=== PATIENT | male | born 1985 | race Caucasian/White ===

== ENCOUNTER 2017-02-08 10:21 | Emergency (ER) | payer SELFPAY ==
[2017-02-08 10:31] VITALS: BP 142/92; PULSE 89; TEMP 98.9; BMI 29.2
[2017-02-08] MEDS ORDERED: KETOROLAC TROMETHAMINE 30 MG/1 ML VIAL IVPUSH ONE (11:13)
[2017-02-08] MEDS ORDERED: SODIUM CHLORIDE 1,000 ML IV STA ×2 (11:13→14:29)
[2017-02-08] MEDS ORDERED: ONDANSETRON 4 MG/2 ML VIAL IVPUSH ONE (11:13)
--- NOTE | 2017-02-08 11:19 | PDOC ---
History of Present Illness - General Chief Complaint: Pain Stated Complaint: ABD PAIN Time Seen by Provider: 02/08/17 10:40 History Source: Patient Exam Limitations: No Limitations - History of Present Illness Travel History: No Initial Comments: 02/08/17 11:17 31-year-old male with no past medical history presents to the ED with complaints of sudden onset of left flank pain with one episode of nausea followed by vomiting. Patient states has had no change in urine pattern, fever, chills, diarrhea, abdominal distention, recent travel, recent illness, history of renal colic, hematuria, urinary frequency, constipation, recent sick contacts , or history of GI disorders. Timing/Duration: reports: intermittent Quality: reports: moderate, sharpness Abdominal Pain Onset Location: reports: flank (lt) Pain Radiation: reports: LLQ Activities at Onset: reports: none Aggravating Factors: improves with: None Alleviating Factors: improves with: None Past History - Travel Traveled outside of the country in the last 30 days: No Close contact w/someone who was outside of country & ill: No - Past Medical History Allergies/Adverse Reactions: Allergies Allergy/AdvReac Type Severity Reaction Status Date / Time No Known Allergies Allergy Verified 02/08/17 10:28 Home Medications: Ambulatory Orders No Home Medications 0 dose .ROUTE UTDICT 08/01/12 - Psycho/Social/Smoking Cessation Hx Anxiety: No Suicidal Ideation: No Smoking Status: Yes Smoking History: Current every day smoker Have you smoked in the past 12 months: Yes Number of Cigarettes Smoked Daily: 10 Information on smoking cessation initiated: No 'Breaking Loose' booklet given: 10/05/15 Hx Alcohol Use: No Drug/Substance Use Hx: No Substance Use Type: Alcohol Patient Lives Alone: No Lives with/in: spouse/SO Review of Systems - Review of Systems Able to Perform ROS?: Yes Constitutional: No: Symptoms Reported ABD/GI: Yes: Nausea, Vomiting : Yes: Flank Pain Musculoskeletal: No: Symptoms Reported Integumentary: No: Symptoms Reported Neurological: No: Symptoms reported *Physical Exam - Vital Signs Last Vital Signs Temp Pulse Resp BP Pulse Ox 98.9 F 89 18 142/92 99 02/08/17 10:28 02/08/17 10:28 02/08/17 10:28 02/08/17 10:28 02/08/17 10:28 - Physical Exam General Appearance: Yes: Nourished, Appropriately Dressed. No: Apparent Distress HEENT: positive: Pharynx Normal Respiratory/Chest: positive: Lungs Clear, Normal Breath Sounds. negative: Respiratory Distress, Accessory Muscle Use Cardiovascular: positive: Regular Rhythm, Regular Rate. negative: Murmur Gastrointestinal/Abdominal: positive: Soft, Guarding (mild), Rebound (left flank ), Tenderness (left flank left lower quadrant) Musculoskeletal: positive: CVA Tenderness (L) (mild) Extremity: positive: Normal Capillary Refill. negative: Pedal Edema Integumentary: positive: Normal Color, Warm, Moist Neurologic: positive: Motor Strength 5/5 (ambulatory) ED Treatment Course - LABORATORY CBC & Chemistry Diagram: 02/08/17 11:32 02/08/17 12:18 - RADIOLOGY Radiology Studies Ordered: Category Date Time Status SPIRAL- RENAL-STONE CT [CT] Stat CT Scan 02/08/17 11:13 Ordered Medical Decision Making - Medical Decision Making 02/08/17 11:20 Patient is an onset of left flank pain associated 1 episode of nausea followed by vomiting. Patient exam had left flank left lower quadrant and left CVA tenderness. Patient concerning for renal colic, hydronephrosis, and UTI. Patient ordered for labs, urine, antiemetics, analgesics, IV fluids and a spiral CT. 02/08/17 12:28 Laboratory Tests 02/08/17 11:32 WBC 15.9 H D Hgb 14.9 Hct 43.4 Neutrophils % 88.0 H D 02/08/17 12:28 Laboratory Tests 02/08/17 11:32 Urine Ketones Trace H Urine Blood 1+ H Ur Leukocyte Esterase Negative Urine WBC 1 02/08/17 14:29 CT of the abdomen shows acute diverticulitis in the mid and distal sigmoid colon with stranding of the surrounding fat and small amount of free fluid in the left pericolic gutter without evidence of abscess formation. No definite extraluminal air is identified. Close follow-up is needed. Patient will be given a dose of Flagyl and Cipro here in the ER. Patient ordered for second bag of IV fluid 02/08/17 15:09 Patient also given by mouth challenge and hospitalist made aware of possible admission if patient fails by mouth challenge. 02/08/17 17:12 Patient tolerated crackers and requesting more apple juice along with crackers. Patient will be discharged home with Cipro and Radha along with referral to fiber product cutting machine operator Dr. James. *DC/Admit/Observation/Transfer Diagnosis at time of Disposition: Acute diverticulitis of intestine - Discharge Dispostion Disposition: HOME Condition at time of disposition: Good - Referrals Referrals: Ezra James MD [Staff Physician] - - Patient Instructions Printed Discharge Instructions: DI for Diverticulitis Additional Instructions: Please take antibiotics as prescribed for diverticulitis. Please observe for worsening symptoms such as fever, worsening abdominal pain, or inability to tolerate by mouth. If this occurs you need to return to the ED for further evaluation and possible admission. Otherwise complete antibiotics and follow up with referred fiber product cutting machine operator.
[2017-02-08] MEDS ORDERED: ONDANSETRON 4 MG/2 ML VIAL ONE (11:37)
[2017-02-08] MEDS ORDERED: KETOROLAC TROMETHAMINE 30 MG/1 ML VIAL ONE (11:37)
[2017-02-08 11:42] LABS: URINE APPEARANCE CLEAR; URINE BILIRUBIN NEGATIVE (NEGATIVE); URINE BLOOD 1+ (NEGATIVE); URINE COLOR YELLOW; URINE GLUCOSE (UA) NEGATIVE (NEGATIVE); URINE KETONE TRACE (NEGATIVE); URINE LEUK ESTERASE NEGATIVE (NEGATIVE); URINE NITRITE NEGATIVE (NEGATIVE); URINE PROTEIN NEGATIVE (NEGATIVE); URINE UROBILINOGEN NEGATIVE mg/dL (0.2-1.0)
[2017-02-08 11:53] LABS: URINE MUCUS RARE; URINE RBC <1 /hpf (0-3); URINE WBC 1 /hpf (3-5)
[2017-02-08 11:57] LABS: BASOPHIL 0.1 % (0-2.0); EOSINOPHIL 0.2 % (0-4.5); MCHC 34.2 g/dl (32.0-35.9); MEAN CELL VOLUME 84.6 fl (80-96); MEAN PLT VOLUME 10.8 fl (7.5-11.1); PLATELET COUNT 208 K/MM3 (134-434); RDW 12.6 % (11.9-15.9); WHITE BLOOD COUNT 15.9 K/mm3 (4.0-10.0)
[2017-02-08 13:03] LABS: ALBUMIN 3.9 g/dl (3.4-5.0); ANION GAP 8 (8-16); CALCIUM 8.4 mg/dL (8.5-10.1); CO2 28 mmol/L (21-32); GLUCOSE,RANDOM 88 mg/dL (74-106); SGOT/AST 10 U/L (15-37); SGPT/ALT 21 U/L (12-78)
[2017-02-08 13:06] LABS: ALK PHOS 60 U/L (45-117); BILIRUBIN,TOTAL 0.8 mg/dL (0.2-1.0); CREATININE 0.9 mg/dL (0.7-1.3); TOT PROT 6.6 g/dl (6.4-8.2)
[2017-02-08] MEDS ORDERED: CIPROFLOXACIN 400 MG/D5W 200 ML IVPB ONE (14:27)
[2017-02-08] MEDS ORDERED: METRONIDAZOLE 500 MG PREMIXED 100 ML IVPB ONE ×2 (14:27→15:07)
== END 2017-02-08 17:44 | disposition home or self-care (01) ==
LOC: JER 10:21
PROC: 3E03329 Introduction of Other Anti-infective into Peripheral Vein, Percutaneous Approach (ICD-10-PCS; principal; 2017-02-08)
PROC: 3E033GC Introduction of Other Therapeutic Substance into Peripheral Vein, Percutaneous Approach (ICD-10-PCS; 2017-02-08)
PROC: 3E0337Z Introduction of Electrolytic and Water Balance Substance into Peripheral Vein, Percutaneous Approach (ICD-10-PCS; 2017-02-08)
DX: K57.92 Diverticulitis of intestine, part unspecified, without perforation or abscess without bleeding (principal); F17.210 Nicotine dependence, cigarettes, uncomplicated
CPT/HCPCS: 36415; 74176; 80053; 81003; 81015; 85025; 87086; 99283-25

== ENCOUNTER 2017-02-09 10:03 | Inpatient (IN) | payer SELFPAY ==
--- NOTE | 2017-02-09 10:20 | PDOC ---
History of Present Illness - General Chief Complaint: Pain, Acute Stated Complaint: PAIN Time Seen by Provider: 02/09/17 10:19 - History of Present Illness Initial Comments: 31 year old male with recent ED visit significant for new cholecystitis presenting with abdominal pain, nausea, and vomiting since his discharge yesterday. He states that the pain was controlled in the ED but once he got home he did not have any pain control medication. He also began to feel nauseous and vomited his food and medication last night along with some diarrhea. His main complaint is nausea and pain control. Denies chest pain, headache, cough, or SOB. 02/09/17 10:41 Past History - Past Medical History Allergies/Adverse Reactions: Allergies Allergy/AdvReac Type Severity Reaction Status Date / Time No Known Allergies Allergy Verified 02/09/17 10:04 Home Medications: Ambulatory Orders Ciprofloxacin HCl [Cipro] 500 mg PO BID #20 tablet 02/08/17 Metronidazole [Flagyl -] 500 mg PO TID #30 tablet 02/08/17 Other medical history: denies - Immunization History Immunization Up to Date: Yes - Psycho/Social/Smoking Cessation Hx Anxiety: No Suicidal Ideation: No Smoking Status: Yes Smoking History: Current every day smoker Have you smoked in the past 12 months: Yes Number of Cigarettes Smoked Daily: 10 Information on smoking cessation initiated: No 'Breaking Loose' booklet given: 10/05/15 Hx Alcohol Use: Yes Drug/Substance Use Hx: No Substance Use Type: Alcohol Review of Systems - Review of Systems Constitutional: No: Chills, Diaphoresis, Fever HEENTM: No: Eye Pain, Blurred Vision Respiratory: No: Cough, Shortness of Breath Cardiac (ROS): No: Chest Pain, Lightheadedness ABD/GI: Yes: Diarrhea, Nausea, Vomiting. No: Constipated Musculoskeletal: No: Back Pain Integumentary: No: Bruising, Dryness, Erythema Neurological: No: Headache *Physical Exam - Vital Signs Last Vital Signs Temp Pulse Resp BP Pulse Ox 99.1 F 100 H 18 125/79 99 02/09/17 10:05 02/09/17 10:05 02/09/17 10:05 02/09/17 10:05 02/09/17 10:05 - Physical Exam General Appearance: Yes: Nourished, Appropriately Dressed, Apparent Distress, Mild Distress HEENT: positive: EOMI, GOPAL, Normal ENT Inspection, Normal Voice Neck: positive: Trachea midline. negative: Tender Respiratory/Chest: positive: Lungs Clear, Normal Breath Sounds. negative: Chest Tender, Respiratory Distress, Accessory Muscle Use Cardiovascular: positive: Regular Rhythm, Regular Rate, S1, S2 Gastrointestinal/Abdominal: positive: Normal Bowel Sounds, Tender (Voluntary guarding with TTP in LLQ), Soft, Protuberent. negative: Flat Neurologic: positive: Fully Oriented, Alert, Normal Mood/Affect, Motor Strength 11/04 ED Treatment Course - LABORATORY CBC & Chemistry Diagram: 02/09/17 10:29 02/09/17 10:29 Medical Decision Making - Medical Decision Making 31 year old male with recently diagnosed diverticulitis presenting with vomiting and continued abdominal pain. This is most concerning for perforation given his abdominal exam. CXR negative. Labs significant for WBC 17 (up from 16 yesterday), T-bili slightly elevated to 1.3. 02/09/17 14:[address] Administered 4 more morphine IV for abdominal pain with improved abdominal pain. 02/09/17 16:34 CT returned with free extraluminal air. We paged Dr. Zepeda who was no longer contractor field hauling and we were referred to Dr. Pierre who was the covering surgeon, who we paged twice but were informed that he was in surgery. We then reached out to Dr. Reeves (proposed admitting attending) and she referred us to Dr. Hardy was paged at 16:43. Dr. Hardy was very kind but was unable to help us at the moment given he wasn't contractor field hauling and not in the area. 02/09/17 17:58 We reached back out to Dr. Pierre who performed the consult and discussed the options with the patient in length over the phone. The final decision was to pursue IV antibiotics for the short term in the hopes of recovery without surgery. Dr. Pierre reviewed the film and felt that the reading may be incorrect and that the infection was possibly walled off. Dr. Reeves was paged at 17:50. 02/09/17 18:[address] Reeves, we will admit the patient under her. *DC/Admit/Observation/Transfer Diagnosis at time of Disposition: Diverticula of colon, Perforation bowel - Discharge Dispostion Condition at time of disposition: Stable Admit: Yes - Attestations Physician Attestion: 02/09/17 19:01 I, Dr. Kimber Sharma, attest that this document has been prepared under my direction and personally reviewed by me in its entirety. I further attest, that it accurately reflects all work, treatment, procedures and medical decision -making performed by me.
[2017-02-09] MEDS ORDERED: morphine CARPU-JECT 4 MG/1 ML DISP.SYRIN IVPUSH ONE ×3 (10:31→17:04)
[2017-02-09] MEDS ORDERED: morphine CARPU-JECT 4 MG/1 ML DISP.SYRIN ONE ×2 (10:36→14:09)
[2017-02-09 10:39] LABS: BASOPHIL 0.2 % (0-2.0); MCH 28.9 pg (25.7-33.7); MCHC 34.2 g/dl (32.0-35.9); MEAN CELL VOLUME 84.3 fl (80-96); MEAN PLT VOLUME 10.2 fl (7.5-11.1); NEUTROPHILS 88.7 % (42.8-82.8); PLATELET COUNT 201 K/MM3 (134-434); RDW 12.3 % (11.9-15.9); WHITE BLOOD COUNT 17.1 K/mm3 (4.0-10.0)
[2017-02-09] MEDS ORDERED: LEVOFLOXACIN 750 MG IVPB 150 ML IVPB ONE ×2 (10:40→11:06)
[2017-02-09] MEDS ORDERED: METRONIDAZOLE 500 MG PREMIXED 100 ML IVPB ONE ×2 (10:41→11:06)
[2017-02-09 10:51] LABS: INR 1.62 (0.82-1.09)
[2017-02-09 11:05] LABS: ALBUMIN 3.9 g/dl (3.4-5.0); ANION GAP 9 (8-16); BILIRUBIN,TOTAL 1.2 mg/dL (0.2-1.0); CALCIUM 8.7 mg/dL (8.5-10.1); CO2 27 mmol/L (21-32); CREATININE 1.1 mg/dL (0.7-1.3); GLUCOSE,RANDOM 94 mg/dL (74-106); SGOT/AST 13 U/L (15-37); SGPT/ALT 18 U/L (12-78); TOT PROT 7.1 g/dl (6.4-8.2)
[2017-02-09 11:06] LABS: ALK PHOS 63 U/L (45-117)
[2017-02-09] MEDS ORDERED: SODIUM CHLORIDE 0.9% 1000 ML INFUS.BAG IV ONE (11:25)
--- NOTE | 2017-02-09 11:26 | PDOC ---
Attending Attestation - Resident Resident Name: Kimber Sharma - ED Attending Attestation I have performed the following: I have examined & evaluated the patient, The case was reviewed & discussed with the resident, I agree w/resident's findings & plan, Exceptions are as noted - HPI HPI: 02/09/17 11:17 31-year-old male with no significant past medical history, diagnosed here with diverticulitis on CT scan yesterday and discharged with Cipro and Flagyl presents with worsening left lower quadrant pain, abdominal bloating, and inability to keep antibiotics down. He attempted to take his ciprofloxacin last night and vomited the pill up at midnight. He has yet to take the Flagyl as he feels too nauseous to. Denies any fevers, chills. Denies any chest pain, shortness of breath. - Physicial Exam PE: 02/09/17 11:20 GENERAL: Awake, alert, and fully oriented, in no acute distress HEAD: No signs of trauma EYES: PERRLA, EOMI, sclera anicteric, conjunctiva clear ENT: Auricles normal inspection, hearing grossly normal, nares patent, oropharynx clear without exudates. Moist mucosa NECK: Normal ROM, supple, no lymphadenopathy, JVD, or masses LUNGS: Breath sounds equal, clear to auscultation bilaterally. No wheezes, and no crackles HEART: Regular rate and rhythm, normal S1 and S2, no murmurs, rubs or gallops ABDOMEN: +distention, +guarding, no rebound, +LLQ ttp EXTREMITIES: Normal range of motion, no edema. No clubbing or cyanosis. No cords, erythema, or tenderness NEUROLOGICAL: Normal speech, cranial nerves intact, negative pronator drift, 5/ 5 strength in all 4 extremities, normal sensation to light touch in all 4 extremities, normal cerebellar exam, normal gait, normal reflexes and tone SKIN: Warm, Dry, normal turgor, no rashes or lesions noted. - Medical Decision Making 02/09/17 11:21 31-year-old male diagnosed yesterday with acute diverticulitis presents with inability to tolerate antibiotics and worsening pain. Exam with bloating of the abdomen, guarding, and left lower quadrant tenderness to palpation concerning for possible microperforation vs perf of the bowel. -labs -IV levaquin/flagyl -IV pain meds -IVF -upright CXR to eval for pneumoperitoneum -consider reimaging w CTAP -surgery c/s -admit 02/09/17 17:[address] with pneumoperitoneum secondary to perfect diverticulum patient's we have attempted to page Dr. Fernández from surgery twice for consultation however we have not heard back. We also sent out a page to Dr. valle who called back and he wasn't in the area and thus would not be able to come and consult on this patient. We just placed a another page to Dr. Fernández. Awaiting call back. Patient is currently hemodynamically stable, continues to complain of abdominal pain however improved with IV morphine.
[2017-02-09] MEDS ORDERED: PIPERACILLIN/TAZOB 3.375 GM 3.375 GM in DEXTROSE 5%-WATER - 50 ML IVPB SCH (17:15)
[2017-02-09] MEDS ORDERED: PIPERACILLIN/TAZOB 3.375 GM 50 ML IVPB ONE (17:45)
[2017-02-09] MEDS: PIPERACILLIN/TAZOB 3.375 GM/50 ML PRE-DOCKED IVPB SCH (17:49)
[2017-02-09] MEDS ORDERED: ONDANSETRON 4 MG/2 ML VIAL IVPUSH PRN (20:05)
[2017-02-09] MEDS ORDERED: DEXTROSE 5%-0.45% SALINE 1,000 ML IV SCH ×2 (20:15→21:30)
[2017-02-09] MEDS ORDERED: ACETAMINOPHEN 325 MG TABLET (FP) PO PRN (20:43)
--- NOTE | 2017-02-09 20:50 | PN ---
Progress Note (short form) - Note Progress Note: surgery pt seen and examined now. Full consult dictated. Ct and chart reviewed at 4pm. 31m diagnosed with diverticulitis and returned to ER after failing 1 day of outpt managment. Abd pain with nausea and vomiting since Monday. Ct shows complicated decending colon diverticulitis with contained drops of extraluminal air. wbc 19. fever 100.5 on exam abd is moderately distended with localized llq tenderness with rebound and guarding Plan- complicated diverticulitis>>>perforated malignancy. Pt offered surgical exploration with colectomy and colostomy. Pt declines. He wants every attempt at conservative management and assumes risk of worsening sepsis leading to and unlikely delay in diagnosis of malignancy. Cont npo. Cont zosyn. If patient deteriorates will likely agree to surgery. Would not start any diet until all tenderness resolves. Eventual colonoscopy and elective colectomy if medical managment successful. Will re-eval tomorrow.
[2017-02-09 21:00] VITALS: BMI 27.3
[2017-02-09] MEDS: DEXTROSE 5%-0.45% SALINE 1,000 ML IV SCH (21:26)
[2017-02-09] MEDS: HEPARIN NA (PORCINE) 5,000 UNITS/ML 1ML VIAL SQ SCH (21:30)
[2017-02-10] MEDS: PIPERACILLIN/TAZOB 3.375 GM/50 ML PRE-DOCKED IVPB SCH ×2 (00:15→05:48)
[2017-02-10] MEDS: IBUPROFEN 800 MG/8 ML IJ IVPB PRN ×2 (02:23→14:38)
[2017-02-10] MEDS: morphine CARPU-JECT 4 MG/1 ML DISP.SYRIN IVPUSH PRN ×2 (02:26→23:13)
--- NOTE | 2017-02-10 07:21 | CONS ---
DATE OF CONSULTATION: 02/09/2017 REASON FOR CONSULTATION: Complicated diverticulitis. This is an emergency room consultation at the request of the emergency room physician. The patient was subsequently admitted to the inpatient floor and is being seen now on the floor. BRIEF HISTORY: This is a 31-year-old male who has been having severe lower abdominal pain with nausea and vomiting for the past 48 hours. Yesterday, he went to the [facility] emergency room where a CAT scan was diagnosed with diverticulitis. He was noted to have an elevated white blood cell count of 16,000 with an 88% shift and he was discharged home on oral antibiotic. The patient returned to the emergency room today stating he did not feel any better despite being on antibiotics and repeat CAT scan was then done which now showed complicated diverticulitis with droplets of air next to the colon wall likely contained within the mesentery. There was no air noted under the diaphragm on the CAT scan. The patient was also noted to have a white blood cell count which had climbed to 17,000 and low-grade fever of 100.5 now seen on the floor. The patient was admitted to the hospital, started on Zosyn antibiotic at my request, and request was made for surgical evaluation. The chart was reviewed and plans discussed with the emergency room physician at 4:00 and the patient is being seen and examined at 8:30 p.m. The patient denies diarrhea, denies blood in the stool, denies recent weight loss. He has never had a colonoscopy. PAST MEDICAL HISTORY: Otherwise negative. PAST SURGICAL HISTORY: Nil. HOME MEDICATIONS: Have been Cipro and Flagyl for this problem. SOCIAL HISTORY: Positive for tobacco. He has been encouraged to quit. FAMILY HISTORY: Negative for malignancy in the immediate family. ALLERGIES: He has no known drug allergies. REVIEW OF SYSTEMS:General: Admits to fatigue. Cardiac: Denies chest pain. Respiratory: Denies shortness of breath or wheeze. Gastrointestinal: As stated in HPI. Genitourinary: Denies dysuria. Musculoskeletal: Denies joint pain, joint swelling. Psychiatric: Denies depression, hearing voices. PHYSICAL EXAMINATION:General: This is a short 31-year-old male in no distress. Vital Signs: He is currently febrile at 100.5 with a heart rate of 100. His blood pressure is 125/79. His oxygen is 99% saturation. HEENT: His head is normocephalic. His sclerae are anicteric. Neck: Supple. Chest: Clear. Abdomen: Moderately distended. He has no surgical scars. He has no tenderness in the upper abdomen. He has significant left lower quadrant tenderness with rebound and guarding. Extremities: Have no edema. LABORATORIES: As stated in HPI. His coagulation profile is mildly elevated at 1.62, likely from antibiotics and sepsis. His chemistries also with a mildly elevated total bilirubin for similar reasons. IMAGING: As stated in HPI. ASSESSMENT: This is a 31-year-old male with left lower quadrant abdominal pain, nausea and vomiting, low-grade fever, tachycardia, with computed axial tomography scan showing thick and inflamed descending colon with droplets of extraluminal air contained next to the colon. Clinically, this is acute diverticulitis that is complicated. He also meets criteria for sepsis with heart rate greater than 90, white blood cell count of 17, and a suspected source of infection. RECOMMENDATIONS: At this point, I have offered the patient exploratory surgery with likely colectomy and colostomy. This would have the benefit of eliminating the source of sepsis and also in the very unlikely event that this is actually a perforated malignancy would make the diagnosis earlier. Patient understands this and is adamantly against any emergent surgery because he does not want to have a colostomy bag. He states that he wishes to make every attempt at conservative management and would only consider surgery if he was deteriorating. The patient assumes the risk of delay in diagnosis of malignancy and the risk that his sepsis may worsen, giving him ultimately a worse outcome. At this point, I recommend the patient be kept n.p.o. Recommend Zosyn antibiotic to cover E. coli and other gram-negative as well as enteric-related gerhard. I would expect some mild improvement by tomorrow. Would not feed this patient until he has no further tenderness. If medical management is successful, the patient should have a colonoscopy in 6 weeks' time and consider an elective colectomy to prevent future recurrence which could likely be done laparoscopically without a colostomy bag. Obviously, if the patient develops high fevers and deteriorates he will need urgent surgery and he likely would be more agreeable at that time. I will follow the patient closely with you. DO LUISA HOWARD/[id number]
[2017-02-10 07:34] LABS: BASOPHIL 0.1 % (0-2.0); EOSINOPHIL 0.1 % (0-4.5); MCH 28.6 pg (25.7-33.7); MCHC 34.2 g/dl (32.0-35.9); MEAN CELL VOLUME 83.7 fl (80-96); MEAN PLT VOLUME 10.4 fl (7.5-11.1); NEUTROPHILS 86.2 % (42.8-82.8); PLATELET COUNT 184 K/MM3 (134-434); RDW 12.6 % (11.9-15.9); WHITE BLOOD COUNT 13.1 K/mm3 (4.0-10.0)
[2017-02-10] MEDS: DEXTROSE 5%-0.45% SALINE 1,000 ML IV SCH ×4 (07:41→23:18)
[2017-02-10 07:44] LABS: ALBUMIN 3.2 g/dl (3.4-5.0); ANION GAP 9 (8-16); CALCIUM 8.6 mg/dL (8.5-10.1); CO2 25 mmol/L (21-32); GLUCOSE,RANDOM 114 mg/dL (74-106)
[2017-02-10 07:50] LABS: ALK PHOS 50 U/L (45-117); BILIRUBIN,TOTAL 1.1 mg/dL (0.2-1.0); SGOT/AST 7 U/L (15-37); SGPT/ALT 15 U/L (12-78); TOT PROT 6.2 g/dl (6.4-8.2)
--- NOTE | 2017-02-10 09:32 | EKG ---
Test Reason : Blood Pressure : / mmHG Vent. Rate : 100 BPM Atrial Rate : 100 BPM P-R Int : 186 ms QRS Dur : 086 ms QT Int : 332 ms P-R-T Axes : 036 048 019 degrees QTc Int : 428 ms NORMAL SINUS RHYTHM WHEN COMPARED WITH ECG OF 01-AUG-2012 17:04, VENT. RATE HAS INCREASED BY 46 BPM QT HAS LENGTHENED Confirmed by KEELY BARKER MD ([id number]) on 02/10/2017 9:31:59 AM Referred By: Confirmed By:KEELY BARKER MD
[2017-02-10] MEDS: HEPARIN NA (PORCINE) 5,000 UNITS/ML 1ML VIAL SQ SCH ×2 (09:43→22:21)
--- NOTE | 2017-02-10 11:29 | HP ---
Admitting History and Physical - Admission History of Present Illness: Pt is a 31 y/o who presented to the er w/ abdominal pain and was dx'ed w/ acute diverticulitis on dc'ed home on antibxs. However the abdominal pain increased and it was now associated w/ nausea and an epsiode of vomiting and pt came back to the ER. In the ER pt had CT scan abd wc now showed acute diverticulitis and extraluminal air and free peritoneal air. Pt was found to have a wbc of 17, 000. Pt was seen by surgery and it was recommended that he have surgery but he refused. i explained to pt that he needed surgery and that without surgery his condition would worsen and he could . Pt said he wanted to follow the conservative treatment of just npo and iv antibxs and if his sypmtoms worsen then he would consider surgery. However I explained to pt that if he waited he could because it may be to late at that time. I also explained to pt that there could be other reasons for his condition like cancer and that this could delay dx and treatment and he still refused any surgical intervention and wants to wait. History Source: Patient - Smoking History Smoking history: Current every day smoker Have you smoked in the past 12 months: Yes Aproximately how many cigarettes per day: 10 - Alcohol/Substance Use Hx Alcohol Use: Yes Home Medications - Allergies Allergies/Adverse Reactions: Allergies Allergy/AdvReac Type Severity Reaction Status Date / Time No Known Allergies Allergy Verified 02/09/17 10:04 - Home Medications Home Medications: Ambulatory Orders Ciprofloxacin HCl [Cipro] 500 mg PO BID #20 tablet 02/08/17 Metronidazole [Flagyl -] 500 mg PO TID #30 tablet 02/08/17 Family Disease History - Family Disease History Family History: Unremarkable Review of Systems - Review of Systems Constitutional: reports: Loss of Appetite Eyes: reports: No Symptoms HENT: reports: No Symptoms Neck: reports: No Symptoms Cardiovascular: reports: No Symptoms Respiratory: reports: No Symptoms Gastrointestinal: reports: Abdominal Pain, Nausea, Vomiting Physical Examination Vital Signs: Vital Signs Temperature 97.7 F 02/10/17 05:50 Pulse Rate 82 02/10/17 05:50 Respiratory Rate 18 02/10/17 05:50 Blood Pressure 116/71 02/10/17 05:50 O2 Sat by Pulse Oximetry (%) 96 02/09/17 23:00 Constitutional: Yes: No Distress HENT: Yes: WNL, Atraumatic Neck: Yes: WNL, Supple Cardiovascular: Yes: WNL, Regular Rate and Rhythm Respiratory: Yes: WNL, Regular, CTA Bilaterally Gastrointestinal: Yes: Other ((+) tenderness w/ guarding (-) rebound) Musculoskeletal: Yes: WNL Extremities: Yes: WNL Edema: No Neurological: Yes: WNL, Alert, Oriented ...Motor Strength: WNL Labs: CBC, BMP 02/10/17 06:10 02/10/17 06:10 Problem List - Problems (1) Abdominal pain Assessment/Plan: Pt is refusing surgery despite knowing risks Cont IV antibxs Cont ivf NPO(bowel rest) ID/surgery consult Will also need GI consult for f/u colonscopy at some point Code(s): R10.9 - UNSPECIFIED ABDOMINAL PAIN
--- NOTE | 2017-02-10 15:39 | PN ---
Progress Note (short form) - Note Progress Note: surgery Pt seen and examined. feels better today with pain and abd fullness. Just had fever 101.7 but otherwise feels well. No nausea. No flatus. abd- soft. less distended. localized left lower quadrant tenderness with less guarding and rebound. Plan- complicated diverticulitis>>>perforated malignancy. Pt offered surgical exploration with colectomy and colostomy. Pt declines. He wants every attempt at conservative management and assumes risk of worsening sepsis leading to and unlikely delay in diagnosis of malignancy. Pt clinically improved despite new fever. Cont npo. Cont zosyn. If patient deteriorates will likely agree to surgery. Would not start any diet until all tenderness resolves. Will need a minimum of 5 days iv abx. If patient continues to improve and tenderness resolves with resolution of fever and normalization of wbc can start liquids and discharge on PO augmentin 875 bid for 1 week. Would stay on liquids 1 week as outpt. Eventual colonoscopy and elective colectomy if medical managment successful. If fevers not resolved by Monday and wbc not normal would repeat CT to r/o developing collection. I am available to re-evaluate if clinical change and patient agreeable to surgery. [phone].
--- NOTE | 2017-02-10 15:47 | CONSULT ---
Consult Consult Specialty:: infectious diseases Referred by:: Reason for Consultation:: diverticulitis - History of Present Illness Chief Complaint: abd pain History of Present Illness: this young male who is admitteded with complicated diverticulitis and was treated initially with oral abx when he came to the emergency room on wed patient went home did not improve and came right back the next day. patient was worked up and found to probably have perforation and complicated diverticulitis surgery has seen the patient and offered him surgery which he has declined patient continues to spike fever he mentions he has had bowel movement and is passing gases family of the patient with friends present i explained in detail about the findings and what ct scan shows and the options Ct shows complicated descending colon diverticulitis with contained drops of extraluminal air. also explained the dangers of conservative treatment.he understands it well also told him any detoriation he needs surgery after looking at the complete picture i ahve a suspicion that he might detoriate still with abd tenderness and guarding - History Source History Provided By: Patient Limitations to Obtaining History: No Limitations - Alcohol/Substance Use Hx Alcohol Use: Yes - Smoking History Smoking history: Current every day smoker Have you smoked in the past 12 months: Yes Aproximately how many cigarettes per day: 10 Home Medications - Allergies Allergies/Adverse Reactions: Allergies Allergy/AdvReac Type Severity Reaction Status Date / Time No Known Allergies Allergy Verified 02/09/17 10:04 - Home Medications Home Medications: Ambulatory Orders Ciprofloxacin HCl [Cipro] 500 mg PO BID #20 tablet 02/08/17 Metronidazole [Flagyl -] 500 mg PO TID #30 tablet 02/08/17 Review of Systems - Review of Systems Constitutional: reports: Fever Eyes: reports: No Symptoms HENT: reports: No Symptoms Neck: reports: No Symptoms Cardiovascular: reports: No Symptoms Respiratory: reports: No Symptoms Gastrointestinal: reports: Abdominal Pain, Other Genitourinary: reports: No Symptoms Breasts: reports: No Symptoms Reported Musculoskeletal: reports: No Symptoms Integumentary: reports: No Symptoms Neurological: reports: No Symptoms Endocrine: reports: No Symptoms Hematology/Lymphatic: reports: No Symptoms Psychiatric: reports: No Symptoms Physical Exam Vital Signs: Vital Signs Temperature 101.7 F H 02/10/17 14:00 Pulse Rate 97 H 02/10/17 14:00 Respiratory Rate 20 02/10/17 14:00 Blood Pressure 121/76 02/10/17 14:00 O2 Sat by Pulse Oximetry (%) 96 02/09/17 23:00 Constitutional: Yes: Well Nourished, Calm, Mild Distress Eyes: Yes: Conjunctiva Clear HENT: Yes: Atraumatic Neck: Yes: Supple, Trachea Midline Cardiovascular: Yes: Regular Rate and Rhythm Respiratory: Yes: Regular, CTA Bilaterally Gastrointestinal: Yes: Tenderness (left lower quadrant with guarding), Other ( absent owel sounds) Musculoskeletal: Yes: WNL Extremities: Yes: WNL Neurological: Yes: Alert, Oriented Psychiatric: Yes: Alert Labs: CBC, BMP 02/10/17 06:10 02/10/17 06:10 Imaging - Results Chest X-ray: Report Reviewed, Image Reviewed Cat Scan: Report Reviewed, Image Reviewed Assessment/Plan abd pain perforated diverticulitis leukocytosis plan strict npo iv fluids abx rest as per surgery
[2017-02-10] MEDS ORDERED: PIPERACILLIN/TAZOB 3.375 GM 50 ML IVPB SCH (16:00)
[2017-02-10] MEDS: PIPERACILLIN/TAZOB 4.5 GM 100 ML IVPB SCH (16:27)
[2017-02-11] MEDS: PIPERACILLIN/TAZOB 4.5 GM 100 ML IVPB SCH ×3 (02:27→18:25)
[2017-02-11] MEDS: morphine CARPU-JECT 4 MG/1 ML DISP.SYRIN IVPUSH PRN ×2 (06:04→11:35)
[2017-02-11] MEDS ORDERED: INSULIN (NOVOLOG) ASPART 100 UNITS/ML 10ML VIAL ONE (06:38)
[2017-02-11 07:30] LABS: BASOPHIL 0.4 % (0-2.0); EOSINOPHIL 1.1 % (0-4.5); MCH 28.9 pg (25.7-33.7); MCHC 34.2 g/dl (32.0-35.9); MEAN CELL VOLUME 84.4 fl (80-96); MEAN PLT VOLUME 10.3 fl (7.5-11.1); NEUTROPHILS 82.2 % (42.8-82.8); PLATELET COUNT 196 K/MM3 (134-434); RDW 12.6 % (11.9-15.9); WHITE BLOOD COUNT 8.5 K/mm3 (4.0-10.0)
[2017-02-11 07:50] LABS: ALBUMIN 3.1 g/dl (3.4-5.0); ANION GAP 7 (8-16); CALCIUM 8.2 mg/dL (8.5-10.1); CO2 27 mmol/L (21-32); GLUCOSE,RANDOM 100 mg/dL (74-106)
[2017-02-11 07:53] LABS: ALK PHOS 58 U/L (45-117); BILIRUBIN,TOTAL 0.7 mg/dL (0.2-1.0); SGOT/AST 10 U/L (15-37); SGPT/ALT 16 U/L (12-78); TOT PROT 6.2 g/dl (6.4-8.2)
[2017-02-11] MEDS: DEXTROSE 5%-0.45% SALINE 1,000 ML IV SCH ×2 (09:31→21:55)
[2017-02-11] MEDS: HEPARIN NA (PORCINE) 5,000 UNITS/ML 1ML VIAL SQ SCH ×2 (11:35→21:56)
--- NOTE | 2017-02-11 13:29 | PN ---
Progress Note, Physician History of Present Illness: continues to have low grade fever no new issue abd still distended no bowel sounds wbc has normalized - Current Medication List Current Medications: Active Medications Acetaminophen (Tylenol -) 650 mg PO Q4H PRN PRN Reason: FEVER OR PAIN Heparin Sodium (Porcine) (Heparin -) 5,000 unit SQ BID JEAN PAUL Last Admin: 02/11/17 11:35 Dose: 5,000 unit Dextrose/Sodium Chloride (D5-1/2ns -) 1,000 mls @ 125 mls/hr IV ASDIR JEAN PAUL Last Admin: 02/11/17 09:31 Dose: 125 mls/hr Piperacillin Sod/Tazobactam Sod (Zosyn 4.5gm Ivpb (Pre-Docked)) 100 mls @ 200 mls/hr IVPB Q8H-IV JEAN PAUL PRN Reason: Protocol Last Admin: 02/11/17 11:35 Dose: 200 mls/hr Ibuprofen (Caldolor Injection -) 800 mg IVPB Q6H PRN PRN Reason: PAIN Last Admin: 02/10/17 14:38 Dose: 800 mg Morphine Sulfate (Morphine Injection -) 4 mg IVPUSH Q6H PRN PRN Reason: PAIN Last Admin: 02/11/17 11:35 Dose: 4 mg Ondansetron HCl (Zofran Injection) 4 mg IVPUSH Q6H PRN PRN Reason: NAUSEA AND/OR VOMITING - Objective Vital Signs: Vital Signs Temperature 99.1 F 02/11/17 11:53 Pulse Rate 78 02/11/17 09:23 Respiratory Rate 18 02/11/17 09:23 Blood Pressure 135/86 02/11/17 09:23 O2 Sat by Pulse Oximetry (%) 99 02/10/17 09:00 Constitutional: Yes: Calm, Mild Distress Cardiovascular: Yes: Regular Rate and Rhythm Respiratory: Yes: Regular, CTA Bilaterally Gastrointestinal: Yes: Soft, Distention, Other (absent bowel sounds) Musculoskeletal: Yes: WNL Extremities: Yes: WNL Neurological: Yes: Alert, Oriented Psychiatric: Yes: Alert, Oriented Labs: CBC, BMP 02/11/17 06:15 02/11/17 06:15 INR, PTT INR 1.62 (0.82-1.09) H 02/09/17 10:29 Assessment/Plan abd pain perforated diverticulitis leukocytosis plan continue current mgmt rest as per primary team
[2017-02-11] MEDS: IBUPROFEN 800 MG/8 ML IJ IVPB PRN (18:28)
--- NOTE | 2017-02-11 21:57 | PN ---
Progress Note, Physician History of Present Illness: Pt states that he is feeling better Decreased abdominal pain No nausea/vomiting - Current Medication List Current Medications: Active Medications Acetaminophen (Tylenol -) 650 mg PO Q4H PRN PRN Reason: FEVER OR PAIN Heparin Sodium (Porcine) (Heparin -) 5,000 unit SQ BID JEAN PAUL Last Admin: 02/11/17 11:35 Dose: 5,000 unit Dextrose/Sodium Chloride (D5-1/2ns -) 1,000 mls @ 125 mls/hr IV ASDIR JEAN PAUL Last Admin: 02/11/17 09:31 Dose: 125 mls/hr Piperacillin Sod/Tazobactam Sod (Zosyn 4.5gm Ivpb (Pre-Docked)) 100 mls @ 200 mls/hr IVPB Q8H-IV JEAN PAUL PRN Reason: Protocol Last Admin: 02/11/17 18:25 Dose: 200 mls/hr Ibuprofen (Caldolor Injection -) 800 mg IVPB Q6H PRN PRN Reason: PAIN Last Admin: 02/11/17 18:28 Dose: 800 mg Morphine Sulfate (Morphine Injection -) 4 mg IVPUSH Q6H PRN PRN Reason: PAIN Last Admin: 02/11/17 11:35 Dose: 4 mg Ondansetron HCl (Zofran Injection) 4 mg IVPUSH Q6H PRN PRN Reason: NAUSEA AND/OR VOMITING - Objective Vital Signs: Vital Signs Temperature 98.8 F 02/11/17 15:37 Pulse Rate 78 02/11/17 15:37 Respiratory Rate 20 02/11/17 15:37 Blood Pressure 130/90 02/11/17 15:37 O2 Sat by Pulse Oximetry (%) 99 02/10/17 09:00 Constitutional: Yes: No Distress HENT: Yes: WNL Neck: Yes: WNL, Supple Cardiovascular: Yes: WNL, Regular Rate and Rhythm Respiratory: Yes: WNL, Regular, CTA Bilaterally Gastrointestinal: Yes: Other ((+) LLQ tenderness (-) guarding/rebound) Labs: CBC, BMP 02/11/17 06:15 02/11/17 06:15 INR, PTT INR 1.62 (0.82-1.09) H 02/09/17 10:29 Problem List - Problems (1) Abdominal pain Assessment/Plan: Again spoke to pt about need for surgery however he is still refusing and wants to continue to think about it WBC is now normal Monitor blood cultures Lactic acid is normal Cont IV antibxs Cont ivf NPO(bowel rest) ID/surgery consult Will also need GI consult for f/u colonscopy at some point Code(s): R10.9 - UNSPECIFIED ABDOMINAL PAIN
[2017-02-12] MEDS: PIPERACILLIN/TAZOB 4.5 GM 100 ML IVPB SCH ×3 (02:31→18:29)
[2017-02-12] MEDS: DEXTROSE 5%-0.45% SALINE 1,000 ML IV SCH ×3 (05:35→20:58)
[2017-02-12] MEDS: IBUPROFEN 800 MG/8 ML IJ IVPB PRN (05:40)
[2017-02-12 07:37] LABS: BASOPHIL 0.5 % (0-2.0); MCH 29.2 pg (25.7-33.7); MCHC 34.8 g/dl (32.0-35.9); MEAN CELL VOLUME 83.9 fl (80-96); MEAN PLT VOLUME 9.4 fl (7.5-11.1); NEUTROPHILS 78.4 % (42.8-82.8); PLATELET COUNT 227 K/MM3 (134-434); RDW 12.5 % (11.9-15.9); WHITE BLOOD COUNT 7.5 K/mm3 (4.0-10.0)
[2017-02-12 07:59] LABS: ALBUMIN 3.1 g/dl (3.4-5.0); ANION GAP 9 (8-16); CALCIUM 8.5 mg/dL (8.5-10.1); CO2 25 mmol/L (21-32); CREATININE 0.9 mg/dL (0.7-1.3); GLUCOSE,RANDOM 97 mg/dL (74-106); SGOT/AST 15 U/L (15-37); SGPT/ALT 20 U/L (12-78)
[2017-02-12 08:01] LABS: ALK PHOS 65 U/L (45-117); BILIRUBIN,TOTAL 0.8 mg/dL (0.2-1.0)
[2017-02-12] MEDS: HEPARIN NA (PORCINE) 5,000 UNITS/ML 1ML VIAL SQ SCH ×2 (10:11→21:00)
--- NOTE | 2017-02-12 13:06 | PN ---
Progress Note, Physician History of Present Illness: doing much better no new issues has been started on liquids - Current Medication List Current Medications: Active Medications Acetaminophen (Tylenol -) 650 mg PO Q4H PRN PRN Reason: FEVER OR PAIN Heparin Sodium (Porcine) (Heparin -) 5,000 unit SQ BID JEAN PAUL Last Admin: 02/12/17 10:11 Dose: 5,000 unit Dextrose/Sodium Chloride (D5-1/2ns -) 1,000 mls @ 125 mls/hr IV ASDIR JEAN PAUL Last Admin: 02/12/17 05:35 Dose: 125 mls/hr Piperacillin Sod/Tazobactam Sod (Zosyn 4.5gm Ivpb (Pre-Docked)) 100 mls @ 200 mls/hr IVPB Q8H-IV JEAN PAUL PRN Reason: Protocol Last Admin: 02/12/17 10:06 Dose: 200 mls/hr Ibuprofen (Caldolor Injection -) 800 mg IVPB Q6H PRN PRN Reason: PAIN Last Admin: 02/12/17 05:40 Dose: 800 mg Morphine Sulfate (Morphine Injection -) 4 mg IVPUSH Q6H PRN PRN Reason: PAIN Last Admin: 02/11/17 11:35 Dose: 4 mg Ondansetron HCl (Zofran Injection) 4 mg IVPUSH Q6H PRN PRN Reason: NAUSEA AND/OR VOMITING - Objective Vital Signs: Vital Signs Temperature 98.2 F 02/12/17 09:00 Pulse Rate 66 02/12/17 09:00 Respiratory Rate 18 02/12/17 09:00 Blood Pressure 119/74 02/12/17 09:00 O2 Sat by Pulse Oximetry (%) 99 02/12/17 10:00 Constitutional: Yes: No Distress, Calm Cardiovascular: Yes: Regular Rate and Rhythm Respiratory: Yes: Regular, CTA Bilaterally Gastrointestinal: Yes: Soft, Hypoactive Bowel Sounds Musculoskeletal: Yes: WNL Extremities: Yes: WNL Neurological: Yes: Alert, Oriented Psychiatric: Yes: Alert, Oriented Labs: CBC, BMP 02/12/17 06:20 02/12/17 06:20 INR, PTT INR 1.62 (0.82-1.09) H 02/09/17 10:29 Assessment/Plan abd pain perforated diverticulitis leukocytosis plan continue current mgmt rif patient tolerates liquids can switch him to levaquin daily with flagyl 500 mg three tmes a day for another 8 days
[2017-02-12] MEDS ORDERED: POTASSIUM CHLORIDE TABS 20 MEQ TABLET.ER (FP) PO ONE ×2 (15:45→19:00)
[2017-02-12] MEDS: KCL 10 MEQ IVPB 100 ML IVPB SCH ×3 (16:21→19:01)
--- NOTE | 2017-02-12 23:43 | PN ---
Progress Note, Physician History of Present Illness: Pt states that he is feeling better Decreased abdominal pain No nausea/vomiting - Current Medication List Current Medications: Active Medications Acetaminophen (Tylenol -) 650 mg PO Q4H PRN PRN Reason: FEVER OR PAIN Heparin Sodium (Porcine) (Heparin -) 5,000 unit SQ BID JEAN PAUL Last Admin: 02/12/17 21:00 Dose: 5,000 unit Dextrose/Sodium Chloride (D5-1/2ns -) 1,000 mls @ 125 mls/hr IV ASDIR JEAN PAUL Last Admin: 02/12/17 20:58 Dose: 125 mls/hr Piperacillin Sod/Tazobactam Sod (Zosyn 4.5gm Ivpb (Pre-Docked)) 100 mls @ 200 mls/hr IVPB Q8H-IV JEAN PAUL PRN Reason: Protocol Last Admin: 02/12/17 18:29 Dose: 200 mls/hr Ibuprofen (Caldolor Injection -) 800 mg IVPB Q6H PRN PRN Reason: PAIN Last Admin: 02/12/17 05:40 Dose: 800 mg Ondansetron HCl (Zofran Injection) 4 mg IVPUSH Q6H PRN PRN Reason: NAUSEA AND/OR VOMITING - Objective Vital Signs: Vital Signs Temperature 99.0 F 02/12/17 23:02 Pulse Rate 71 02/12/17 23:02 Respiratory Rate 18 02/12/17 15:23 Blood Pressure 128/92 02/12/17 23:02 O2 Sat by Pulse Oximetry (%) 98 02/12/17 21:00 Constitutional: Yes: No Distress Neck: Yes: WNL, Supple Cardiovascular: Yes: WNL, Regular Rate and Rhythm Respiratory: Yes: WNL, Regular, CTA Bilaterally Gastrointestinal: Yes: Other ((+) tenderness LLQ (-) guarding/rebound) Labs: CBC, BMP 02/12/17 06:20 02/12/17 06:20 INR, PTT INR 1.62 (0.82-1.09) H 02/09/17 10:29 Problem List - Problems (1) Abdominal pain Assessment/Plan: Pt refuses surgery WBC is now normal Monitor blood cultures Lactic acid is normal Cont IV antibxs Cont ivf NPO(bowel rest) ID/surgery consult Will also need GI consult for f/u colonscopy at some point Code(s): R10.9 - UNSPECIFIED ABDOMINAL PAIN
[2017-02-13] MEDS: PIPERACILLIN/TAZOB 4.5 GM 100 ML IVPB SCH ×3 (01:14→17:52)
[2017-02-13 07:43] LABS: MCH 28.7 pg (25.7-33.7); MCHC 34.3 g/dl (32.0-35.9); MEAN CELL VOLUME 83.7 fl (80-96); MEAN PLT VOLUME 9.5 fl (7.5-11.1); PLATELET COUNT 270 K/MM3 (134-434); RDW 12.5 % (11.9-15.9)
[2017-02-13 08:05] LABS: ALBUMIN 3.1 g/dl (3.4-5.0); ANION GAP 8 (8-16); CALCIUM 8.6 mg/dL (8.5-10.1); CO2 28 mmol/L (21-32); GLUCOSE,RANDOM 101 mg/dL (74-106)
[2017-02-13 08:10] LABS: ALK PHOS 59 U/L (45-117); SGOT/AST 16 U/L (15-37); SGPT/ALT 24 U/L (12-78); TOT PROT 6.1 g/dl (6.4-8.2)
[2017-02-13] MEDS: DEXTROSE 5%-0.45% SALINE 1,000 ML IV SCH (09:56)
[2017-02-13] MEDS: HEPARIN NA (PORCINE) 5,000 UNITS/ML 1ML VIAL SQ SCH ×2 (09:57→21:58)
--- NOTE | 2017-02-13 15:58 | PN ---
Progress Note, Physician History of Present Illness: patient stable tolerating liquids - Current Medication List Current Medications: Active Medications Acetaminophen (Tylenol -) 650 mg PO Q4H PRN PRN Reason: FEVER OR PAIN Heparin Sodium (Porcine) (Heparin -) 5,000 unit SQ BID JEAN PAUL Last Admin: 02/13/17 09:57 Dose: 5,000 unit Piperacillin Sod/Tazobactam Sod (Zosyn 4.5gm Ivpb (Pre-Docked)) 100 mls @ 200 mls/hr IVPB Q8H-IV JEAN PAUL PRN Reason: Protocol Last Admin: 02/13/17 09:57 Dose: 200 mls/hr Dextrose/Sodium Chloride (D5-1/2ns -) 1,000 mls @ 75 mls/hr IV ASDIR JEAN PAUL Last Admin: 02/13/17 09:56 Dose: 75 mls/hr Ibuprofen (Caldolor Injection -) 800 mg IVPB Q6H PRN PRN Reason: PAIN Last Admin: 02/12/17 05:40 Dose: 800 mg Ondansetron HCl (Zofran Injection) 4 mg IVPUSH Q6H PRN PRN Reason: NAUSEA AND/OR VOMITING - Objective Vital Signs: Vital Signs Temperature 97.0 F L 02/13/17 15:37 Pulse Rate 64 02/13/17 15:37 Respiratory Rate 18 02/13/17 15:37 Blood Pressure 136/94 02/13/17 15:37 O2 Sat by Pulse Oximetry (%) 98 02/12/17 21:00 Constitutional: Yes: No Distress, Calm Cardiovascular: Yes: Regular Rate and Rhythm Respiratory: Yes: Regular, CTA Bilaterally Gastrointestinal: Yes: Normal Bowel Sounds, Soft Musculoskeletal: Yes: WNL Extremities: Yes: WNL Neurological: Yes: Alert, Oriented Psychiatric: Yes: Alert Labs: CBC, BMP 02/13/17 06:45 02/13/17 06:45 INR, PTT INR 1.62 (0.82-1.09) H 02/09/17 10:29 Assessment/Plan abd pain perforated diverticulitis leukocytosis plan continue current mgmt can switch from tomorrow to oral abx levaquin and flagyl 500 mg tid for 7 more days
--- NOTE | 2017-02-13 19:35 | CON.GI ---
Consult Consult Specialty:: gastroenterology Referred by:: Dr Reeves - History of Present Illness Chief Complaint: diverticulitis History of Present Illness: 31 y/o M was admitted 02/09/2017 because of diverticulitis complicated by microperforation. He was given IV antibiotics and IV hydration which provided complete relied of his symptoms. Today he is asymptomatic. - Alcohol/Substance Use Hx Alcohol Use: Yes - Smoking History Smoking history: Current every day smoker Have you smoked in the past 12 months: Yes Aproximately how many cigarettes per day: 10 Home Medications - Allergies Allergies/Adverse Reactions: Allergies Allergy/AdvReac Type Severity Reaction Status Date / Time No Known Allergies Allergy Verified 02/09/17 10:04 - Home Medications Home Medications: Ambulatory Orders Ciprofloxacin HCl [Cipro] 500 mg PO BID #20 tablet 02/08/17 Metronidazole [Flagyl -] 500 mg PO TID #30 tablet 02/08/17 Family Disease History - Family Disease History Family History: Denies (colon and gastric cancer) Review of Systems - Review of Systems Constitutional: denies: Fever Eyes: denies: Blind Spots HENT: denies: Difficult Swallowing Neck: denies: Decreased ROM Cardiovascular: denies: Chest Pain Respiratory: denies: Cough Gastrointestinal: denies: Abdominal Pain, Bloating, Constipation, Diarrhea, Melena, Rectal Bleeding Physical Exam-GI Vital Signs: Vital Signs Temperature 98.1 F 02/13/17 18:00 Pulse Rate 55 L 02/13/17 18:00 Respiratory Rate 20 02/13/17 18:00 Blood Pressure 124/96 02/13/17 18:00 O2 Sat by Pulse Oximetry (%) 98 02/12/17 21:00 Constitutional: Yes: Well Nourished, Poor Hygeine HENT: Yes: Atraumatic Neck: Yes: Supple Cardiovascular: Yes: Regular Rate and Rhythm Respiratory: Yes: CTA Bilaterally ...Palpate: Yes: Soft. No: Firm/Rigid, Guarding, Hepatomegaly, Mass, Pulsatile Mass, Splenomegaly, Tenderness Labs: CBC, BMP 02/13/17 06:45 02/13/17 06:45 INR, PTT INR 1.62 (0.82-1.09) H 02/09/17 10:29 Imaging - Results Cat Scan: Image Reviewed Problem List - Problems (1) Acute diverticulitis Assessment/Plan: R> made aware to follow-up low residue , lactose free diet for colonoscopy in 2 mos Code(s): K57.92 - DVTRCLI OF INTEST, PART UNSP, W/O PERF OR ABSCESS W/O BLEED
--- NOTE | 2017-02-13 23:43 | PN ---
Progress Note, Physician History of Present Illness: No abdominal pain - Current Medication List Current Medications: Active Medications Acetaminophen (Tylenol -) 650 mg PO Q4H PRN PRN Reason: FEVER OR PAIN Heparin Sodium (Porcine) (Heparin -) 5,000 unit SQ BID JEAN PAUL Last Admin: 02/13/17 21:58 Dose: 5,000 unit Piperacillin Sod/Tazobactam Sod (Zosyn 4.5gm Ivpb (Pre-Docked)) 100 mls @ 200 mls/hr IVPB Q8H-IV JEAN PAUL PRN Reason: Protocol Last Admin: 02/13/17 17:52 Dose: 200 mls/hr Dextrose/Sodium Chloride (D5-1/2ns -) 1,000 mls @ 75 mls/hr IV ASDIR JEAN PAUL Last Admin: 02/13/17 09:56 Dose: 75 mls/hr Ibuprofen (Caldolor Injection -) 800 mg IVPB Q6H PRN PRN Reason: PAIN Last Admin: 02/12/17 05:40 Dose: 800 mg Ondansetron HCl (Zofran Injection) 4 mg IVPUSH Q6H PRN PRN Reason: NAUSEA AND/OR VOMITING - Objective Vital Signs: Vital Signs Temperature 98.1 F 02/13/17 18:00 Pulse Rate 55 L 02/13/17 18:00 Respiratory Rate 20 02/13/17 18:00 Blood Pressure 124/96 02/13/17 18:00 O2 Sat by Pulse Oximetry (%) 98 02/13/17 09:00 Constitutional: Yes: No Distress Cardiovascular: Yes: WNL, Regular Rate and Rhythm Respiratory: Yes: WNL, Regular, CTA Bilaterally Gastrointestinal: Yes: WNL, Normal Bowel Sounds, Soft Labs: CBC, BMP 02/13/17 06:45 02/13/17 06:45 INR, PTT INR 1.62 (0.82-1.09) H 02/09/17 10:29 Problem List - Problems (1) Abdominal pain Assessment/Plan: Pt refused surgery WBC is now normal BC remained negative Pt tolerating full liquid However will need surgical reconsult prior to dc Code(s): R10.9 - UNSPECIFIED ABDOMINAL PAIN
[2017-02-14] MEDS: DEXTROSE 5%-0.45% SALINE 1,000 ML IV SCH ×2 (00:13→13:10)
[2017-02-14] MEDS: PIPERACILLIN/TAZOB 4.5 GM 100 ML IVPB SCH ×2 (01:42→10:22)
[2017-02-14 07:35] VITALS: TEMP 98.1
[2017-02-14 07:47] LABS: BASOPHIL 0.9 % (0-2.0); EOSINOPHIL 3.4 % (0-4.5); MCHC 34.9 g/dl (32.0-35.9); MEAN CELL VOLUME 83.1 fl (80-96); MEAN PLT VOLUME 9.3 fl (7.5-11.1); NEUTROPHILS 60.1 % (42.8-82.8); PLATELET COUNT 299 K/MM3 (134-434); RDW 12.4 % (11.9-15.9)
[2017-02-14 08:03] LABS: ALBUMIN 3.3 g/dl (3.4-5.0); ANION GAP 9 (8-16); CO2 28 mmol/L (21-32); GLUCOSE,RANDOM 89 mg/dL (74-106)
[2017-02-14 08:07] LABS: ALK PHOS 56 U/L (45-117); BILIRUBIN,TOTAL 0.8 mg/dL (0.2-1.0); CREATININE 1.1 mg/dL (0.7-1.3); SGOT/AST 30 U/L (15-37); SGPT/ALT 39 U/L (12-78); TOT PROT 6.3 g/dl (6.4-8.2)
[2017-02-14 09:26] VITALS: BP 131/98; PULSE 66
[2017-02-14] MEDS: HEPARIN NA (PORCINE) 5,000 UNITS/ML 1ML VIAL SQ SCH (10:23)
[2017-02-14] MEDS ORDERED: PIPERACILLIN/TAZOB 4.5 GM 4.5 GM in DEXTROSE 5%-WATER 100 ML IVPB SCH (12:52)
== END 2017-02-14 13:00 | disposition home or self-care (01) | DRG 392 ==
LOC: JER 10:03 → JERBED 14:47 → J5S 19:06 → OBSVTOIN 20:04 → J5S 02-11 20:22
PROVIDERS: ADMIT Internal Medicine; ATTEND Internal Medicine
DX: K57.20 Diverticulitis of large intestine with perforation and abscess without bleeding (principal); F17.210 Nicotine dependence, cigarettes, uncomplicated; D72.829 Elevated white blood cell count, unspecified
CPT/HCPCS: 36415; 71020-TC; 74177-TC; 80053; 83605; 85025; 85027; 85610; 86850; 86900; 86901; 87040; 87086; 93005; 93010; 99285-25; G0378; J1644